=== PATIENT | male | born 1965 ===

== ENCOUNTER 2024-08-16 09:07 | Inpatient (IN) | payer OTHER, SELFPAY ==
[2024-08-13] VITALS (11 sets, daily range): BP systolic 132–208; BP diastolic 67–109; BMI 56.5
[2024-08-13 12:27] LABS: % Basophils 0.3 % (0-2); % Eosinophils 2.1 % (0-6); % Immature Granulocytes 0.7 % (0-0.5); % Lymphocytes 17.3 % (20.5-51.1); % Monocytes 8.2 % (1.7-9.3); % Neutrophils 71.4 % (42.2-75.2); Absolute Eosinophils 0.2 10^3/uL (0-0.7); Absolute Immature Granulocytes 0.1 10^3/uL (0-0.05); Absolute Lymphocytes 1.9 10^3/uL (1.2-3.4); Absolute Monocytes 0.9 10^3/uL (0.1-0.6); Absolute Neutrophils 7.7 10^3/uL (1.4-6.5); Hematocrit 34.3 % (39.0-52.0); Hemoglobin 11.2 g/dL (13.0-18.0); Mean Corp Hgb Conc. 32.7 g/dL (33.0-37.0); Mean Corpuscular Hgb 29.9 pg (27.0-31.0); Mean Corpuscular Volume 91.5 fL (80.0-94.0); Mean Platelet Volume 9.3 fL (7.4-10.4); Nucleated Red Blood Cells % 0 % (-); Platelet Count 313 10^3/uL (130-400); Red Blood Cell Count 3.75 10^6/uL (4.70-6.10); Red Cell Dist. Width 14.8 % (11.5-14.5); White Blood Cell Count 10.8 10^3/uL (4.8-10.8)
[2024-08-13] MEDS: LOW STRENGTH ASPIRIN 324 MG PO (12:45)
[2024-08-13 12:54] LABS: Blood Urea Nitrogen 47 mg/dl (9-20); Calcium 8.8 mg/dl (8.4-10.2); Carbon Dioxide 24 mmol/L (22-30); Chloride 105 mmol/L (98-107); Glucose 110 mg/dl (70-99); Potassium 5.3 mmol/L (3.5-5.1); Sodium 139 mmol/L (135-145); eGFR 7.85
--- NOTE | 2024-08-13 18:00 | HPS.HSE ---
Family Physician
-
Family Physician: INTERVIEWE UNKNOWN - PT NOT
Chief Complaint
-
cough
History of Present Illness
Patient is a 59-year-old male with past medical history significant for hypertension, hyperlipidemia, chronic congestive heart failure, anemia and ESRD on HD who presented to [facility] for scheduled out-patient cardiac catheterization. Patient was in
catheterization with elevated blood pressure and cough when physician decided patient needed to spend the night for potential decompensated heart failure. Patient reports that he has had a mild cough with exertion for a long period of time, he
reports he feels the past week has been slightly better than before. He attributes the cough to catheter placement for dialysis and when moved from chest wall to groin he has had improvement, he believes when in chest wall it was irriatating back of
throat causing cough. He denies any recent illness, fever, chills, chest pain, nausea, vomiting, constipation, diarrhea or urinary symptoms.
Medical History
Past Medical History
Past Medical History: Reports Other
Additional Past Medical History:
hypertension
hyperlipidemia
chronic congestive heart failure
anemia
ESRD on HD
Past Surgical History: Reports Other
Additional Past Surgical History:
gastric bypass
HD catheter placement x3
cardiac catherterization
Social History
Tobacco: Former Smoker (quit 15-20 years ago)
Alcohol: None
Drug: None
Personal: Single
Living: With Family
Employment: Retired
Family History
Family History: Not pertinent
Allergies / Home Medications
Allergies reflects when Allergies were last updated in Seen.
Home Medications with original date entered in Seen
Allergy/Medication List:
Allergies
Allergy/AdvReac Type Severity Reaction Status Date / Time
lisinopril Allergy Tongue Verified 08/13/24 12:27
Swelling
Home Medications
aspirin 81 mg tablet,delayed release 81 mg PO DAILY 08/13/24
atorvastatin 80 mg tablet 80 mg PO HS 08/13/24
bumetanide 2 mg tablet 2 mg PO HS 08/13/24
carvedilol 25 mg tablet 25 mg PO BID 08/13/24
hydralazine 25 mg tablet 25 mg PO BIDPRN PRN high BP 08/13/24
sacubitril 24 mg-valsartan 26 mg tablet (Entresto) 1 tab PO BID 08/13/24
sevelamer carbonate 800 mg tablet (Renvela) 800 - 1,600 mg PO TID 08/13/24
Review of Systems
-
History Source: Patient
Respiratory: Reports Cough (unproductive, moist ) and Trouble Breathing (exertional dyspnea)
Neurological: Reports Weakness
Physical Exam
Vital Signs
Vital Signs
Temp Pulse Resp BP Pulse Ox
97.9 F 91 18 188/109 99
08/13/24 17:50 08/13/24 17:50 08/13/24 17:50 08/13/24 17:50 08/13/24 17:50
Physical Exam
General: Well Developed, Well Nourished and No Apparent Distress
HEENT: NormoCephalic, Moist mucous membranes and Atraumatic
Respiratory: Clear, Non Labored Respirations and Decreased Breath Sounds
Cardiac: S1/S2 and Regular Rhythm
Breast: Deferred by me
GI: Soft, Non Tender, Non Distended and Normal Bowel Sounds
Rectal: Deferred by Provider
Genito-urinary: Deferred by me
Musculoskeletal: No Clubbing, No Cyanosis and No Edema
Skin: Warm and IV/Catheter Site (HD cath in right groin )
Neuro: Awake, Alert, AO x 3 and Nonfocal/grossly intact
Hematologic/Lymphatic: No Lymphadenopathy
Psych: Calm and Intact Judgment/Insight
Laboratory Results
-
08/13/24 12:19
08/13/24 12:19
Data Reviewed
-
Lab Data: Labs Reviewed by me (hgb 11.2, hct 34.3, K+ 5.3, BUN 47, Creat 7.4)
Impression/Plan
-
IMPRESSION/PLAN:
#exertional dyspnea, cough and elevated blood pressure likely 2/2 decompensated heart failure and non-compliance
#non-ischemic cardiomyopathy
patient known to be non-complaint with medications and POC
ECHO (05/07/23): Very technically limited study.
Probably normal left ventricular systolic function.
No obvious valvular disease.
- Admit to IVU
- Consult cardiology
- continue bumetanide, carvedilol and Entresto
- daily weights
- I & Os
#hypertension
- continue bumetanide, carvedilol and hydralazine
- PRN hydralazine
#hyperlipidemia
- continue atorvastatin
#anemia
hgb 11.2, hct 34.3
- monitor H/H
#ESRD
on HD, last session 08/12/2024,
K+ 5.3, BUN 47, Creat 7.4
- Consult Nephrology
- continue Renvela
#morbid obesity
BMI 56.4
- affects all aspects of care
- encourage balanced diet and exercise to promote weight loss
Code status: full code
DVT prophylaxis: heparin sq
[2024-08-13] MEDS: TYLENOL 650 MG PO (18:05)
[2024-08-13] MEDS: BUMEX 2 MG IV (18:05)
--- NOTE | 2024-08-13 18:27 | PTCARENOTE ---
Rec'd pt from laborer plumbing. R radial band on. No bleeding/hematoma noted. Activity restrictions reviewed w/ pt and verbalizes understanding. Oriented pt to room. Pt w/ HD catheter in R groin. Pt c/o headache 05/24 and tylenol administered. IV Bumex
administered as ordered. See MAR. Currently in bed; call nancy w/in reach.
--- NOTE | 2024-08-13 18:33 | PTCARENOTE ---
Rec'd pt from carpenter labor supervisor. R radial band on. No bleeding/hematoma noted. Activity restrictions reviewed w/ pt and verbalizes understanding. Oriented pt to room. Pt w/ HD catheter in R groin. Pt c/o headache 05/24 and tylenol administered. IV Bumex
administered as ordered. See MAR. Currently in bed; call nancy w/in reach. Aline INSURANCE ACCOUNT SPECIALIST at bedside.
--- NOTE | 2024-08-13 19:23 | W.PN.UPDATE ---
Update Note
Progress Note Update
This is an addendum to H&P written by Ange Mireles on 08/13/2024.� Patient seen and examined independently with CLOTH LAMINATING SUPERVISOR.
59-year-old male past medical history of ESRD on hemodialysis Friday, , Friday last dialysis session yesterday, makes some urine at baseline, nonischemic cardiomyopathy with recovered EF, hypertension, hyperlipidemia, anemia of chronic
disease, obesity, gastric sleeve presenting for preoperative left heart cardiac catheterization.� Patient follows with cardiology at [facility] and was recommended to have preoperative cardiac catheterization prior to AV fistula placement.
He has been noncompliant with medications.
He underwent left heart catheterization showung distal apical LAD occlusion without PCI to be treated medically.� He was noted to be coughing.
Vital signs show blood pressure 188/109.
Labs show potassium of 5.3.�
Patient with acute CHF exacerbation with hypertensive urgency due to medication noncompliance.� 2 mg IV Bumex being given, continue 2 mg daily.� Resume antihypertensive/cardiac medications.� Nephrology consulted for dialysis tomorrow.� Cardiology
following.
--- NOTE | 2024-08-13 19:33 | ITS.CL.CATH ---
Diplomatic Courier - Catheterization
Cardiac Catheterization
Procedure Report:
LEFT HEART CATHETERIZATION
Date of Procedure: August 13, 2024
Referring: Dr. Luigi Durham
PROCEDURES:
1. Left heart catheterization, coronary angiogram.
2. Moderate sedation.
INDICATION: Patient is a 59-year-old gentleman with past medical history of morbid obesity, hypertension, hyperlipidemia, end-stage renal disease on dialysis, previous questionable cardiomyopathy with recovered EF with ongoing dyspnea on exertion
being sent in for a left heart catheterization to rule out obstructive coronary artery disease preoperatively prior to a AV fistula placement next week.
ACCESS: Right radial artery, 6Fr. sheath, under US guidance.
HEMODYNAMICS : (mmHg)
AO (s/d) : 176/82
LVEDP : 27
No significant gradient across the aortic valve to suggest aortic stenosis.
CORONARY FINDINGS: Imaging was extremely challenging due to super morbid obesity.
Dominance: Right
Left Main Trunk (LMT): 2 separate ostia appeared to be present for the LAD and left circumflex.
Left Anterior Descending Artery (LAD): Large caliber vessel that gives off 2 major diagonal branches as it courses along the anterior inter-ventricular groove before wrapping around the cardiac apex. Distal to apical LAD has 100% chronic total
occlusion with left to left collaterals. Otherwise there is mild diffuse atherosclerotic plaque.
Left Circumflex Artery (LCx): The left circumflex artery is a medium caliber vessel which gives rise to 2 major obtuse marginal branches with mild to moderate diffuse atherosclerotic plaque.
Right Coronary Artery (RCA): The right coronary artery is a small to medium caliber, dominant vessel which gives rise to the right posterior descending artery. Despite using multiple different diagnostic catheters including a JR4, AL-1, AR-1 and a
3DRC only a nonselective shot could be obtained which showed brisk flow into the distal vessel with no obvious high-grade lesion.
SEDATION: 37 minutes of procedural sedation was utilized. IV Midazolam and IV Fentanyl were administered. An independent medical auditor was present to assist with and help manage the patient's level of consciousness and physiologic status.
RADIATION SUMMARY: Fluoro Time (min): 17, Dose (mGy): 2454, DAP (Gy.cm2) : 149
Closure Device: There were no immediate intra-procedural complications. The sheath was pulled in the laborer stores and a vascular-band applied to the right wrist for radial artery hemostasis using the patent hemostasis technique.
CONCLUSIONS
1. No high-grade stenoses noted.
2. Significantly elevated systemic blood pressures and LVEDP of 27 mmHg concerning for acute decompensated heart failure.
RECOMMENDATIONS
1. Wean radial band per protocol. Monitor right hand perfusion and for bleeding from the radial site following removal of the vascular-band following trans-radial access.
2. Aggressive IV diuresis during hospital admission for acute decompensated heart failure and optimization of medications for underlying hypertension. Aggressive ultrafiltration during hemodialysis
3. Aggressive management of cardiovascular risk factors.
4. Follow-up with Dr. Luigi Durham
Copy to: Dr. Luigi Durham
[2024-08-13] MEDS: COREG 25 MG PO (20:21)
[2024-08-13] MEDS: ENTRESTO 24 MG/26 MG 1 TAB PO (20:21)
[2024-08-13] MEDS: LIPITOR 80 MG PO (23:12)
[2024-08-13] MEDS: HEPARIN 5000 UNITS SC (23:12)
[2024-08-14] VITALS (32 sets, daily range): BP systolic 83–183; BP diastolic 62–119; BMI 56.9
--- NOTE | 2024-08-14 00:01 | PTCARENOTE ---
Pt rec'd at change of shift in bed falling asleep during adm questions with limbs in constant motion. Pt states hx of sleep apnea but after losing wt hasn't worn a machine in years. Right radial band removed just before 10pm. site clean dry and
intact. no active bleeding or hematoma present.
Right femoral dialysis cath noted,DDI. Sinus with freq pvc's and triplets noted on telemetry. Voided once since start of shift.
[2024-08-14 04:39] LABS: Hematocrit 35.6 % (39.0-52.0); Hemoglobin 11.1 g/dL (13.0-18.0); Mean Corp Hgb Conc. 31.2 g/dL (33.0-37.0); Mean Corpuscular Hgb 28.3 pg (27.0-31.0); Mean Corpuscular Volume 90.8 fL (80.0-94.0); Mean Platelet Volume 9.3 fL (7.4-10.4); Platelet Count 279 10^3/uL (130-400); Red Blood Cell Count 3.92 10^6/uL (4.70-6.10); Red Cell Dist. Width 14.6 % (11.5-14.5); White Blood Cell Count 10.7 10^3/uL (4.8-10.8)
--- NOTE | 2024-08-14 04:44 | PTCARENOTE ---
Pt with harsh non productive cough throughout the night. right radial site DDI. washed with chg wipes this morning
[2024-08-14 05:09] LABS: Blood Urea Nitrogen 53 mg/dl (9-20); Calcium 9.1 mg/dl (8.4-10.2); Carbon Dioxide 24 mmol/L (22-30); Chloride 105 mmol/L (98-107); Estimated Creatinine Clearance 15 ml/min; Glucose 110 mg/dl (70-99); HDL Cholesterol 30 mg/dl; LDL Cholesterol, Calculated 147 mg/dl; Potassium 5.9 mmol/L (3.5-5.1); Sodium 139 mmol/L (135-145); Total Cholesterol 230 mg/dl (50-199); Triglyceride 265 mg/dl (10-149); Very Low Density Lipoprotein 53 mg/dl (0-30); eGFR 6.94
--- NOTE | 2024-08-14 05:15 | PTCARENOTE ---
Pt with 14 beat run of VT. Pts b/p 161/83.
[2024-08-14] MEDS: ENTRESTO 24 MG/26 MG PO (09:00)
[2024-08-14] MEDS: COREG PO (09:00)
[2024-08-14] MEDS: LOW STRENGTH ASPIRIN 81 MG PO (09:52)
--- NOTE | 2024-08-14 10:13 | W.CON.NEPH ---
Consultation
-
Date/Time Consultation Requested: August 13, 2024 at 1700
Date/Time Consultation Performed: August 14, 2024 at 10 AM
Requesting Provider: Ange Mireles
Performing Provider: Dr. Mathews
Reason for Consultation: ESRD
Medical History
-
Chief Complaint: Shortness of breath and ESRD
History of Present Illness:
59-year-old male with past medical history significant for hypertension, hyperlipidemia, chronic congestive heart failure, anemia and ESRD on HD who presented to [facility] for scheduled out-patient cardiac catheterization. Patient was in catheterization
with elevated blood pressure and cough when physician decided patient needed to spend the night for potential decompensated heart failure.
Renal consult for end-stage renal disease been on dialysis for 2 years has failed AV shunts bilateral upper extremity currently has a tunneled right femoral catheter.
Receives dialysis at [facility] for Ferny Meade
Past Medical History
past medical history significant for hypertension, hyperlipidemia, chronic congestive heart failure, anemia and ESRD on HD
Social History
Tobacco: Non-Smoker
Alcohol: None
Family History
No renal disease
Allergies / Home Medications
Allergy/AdvReac Type Severity Reaction Status Date / Time
lisinopril Allergy Tongue Verified 08/13/24 12:27
Swelling
�Medication �Instructions �Recorded �Confirmed �Type
aspirin 81 mg tablet,delayed 81 mg PO DAILY 08/13/24 08/13/24 History
release
atorvastatin 80 mg tablet 80 mg PO HS 08/13/24 08/13/24 History
bumetanide 2 mg tablet 2 mg PO HS 08/13/24 08/13/24 History
carvedilol 25 mg tablet 25 mg PO BID 08/13/24 08/13/24 History
hydralazine 25 mg tablet 25 mg PO BIDPRN PRN high BP 08/13/24 08/13/24 History
sacubitril 24 mg-valsartan 26 mg 1 tab PO BID 08/13/24 08/13/24 History
tablet (Entresto)
sevelamer carbonate 800 mg tablet 800 - 1,600 mg PO TID 08/13/24 08/13/24 History
(Renvela)
Review of Systems
-
Cough mild shortness of breath on exertion
All other systems: Negative unless noted
Physical Exam
Vital Signs
Vital Signs
Temp Pulse Resp BP Pulse Ox
98.6 F 89 19 145/81 96
08/14/24 08:10 08/14/24 09:00 08/14/24 08:10 08/14/24 08:11 08/14/24 08:10
Lab Results
WBC 10.7 10^3/uL (4.8-10.8) 08/14/24 04:30
RBC 3.92 10^6/uL (4.70-6.10) L 08/14/24 04:30
Hgb 11.1 g/dL (13.0-18.0) L 08/14/24 04:30
Hct 35.6 % (39.0-52.0) L 08/14/24 04:30
Plt Count 279 10^3/uL (130-400) 08/14/24 04:30
Sodium 139 mmol/L (135-145) 08/14/24 04:30
Potassium 5.9 mmol/L (3.5-5.1) H 08/14/24 04:30
Chloride 105 mmol/L (98-107) 08/14/24 04:30
Carbon Dioxide 24 mmol/L (22-30) 08/14/24 04:30
BUN 53 mg/dl (9-20) H 08/14/24 04:30
Creatinine 8.2 mg/dL (0.7-1.3) H* 08/14/24 04:30
eGFR 6.94 08/14/24 04:30
Glucose 110 mg/dl (70-99) H 08/14/24 04:30
Calcium 9.1 mg/dl (8.4-10.2) 08/14/24 04:30
Physical Exam
General no acute distress
HEENT no cephalic atraumatic extraocular muscle intact no scleral icterus no JVD neck supple
lungs clear to auscultation bilateral
heart regular S1-S2 positive
abdomen soft nontender positive bowel sounds
extremities edema
Neurologically nonfocal alert and oriented x 3
Skin no lesions no abrasions no petechiae
Psych normal affect no bizarre behavior
Data Reviewed
-
Labs: Labs Reviewed by me and Discussed with Patient
Assessment/Plan
-
59-year-old male with past medical history significant for hypertension, hyperlipidemia, chronic congestive heart failure, anemia and ESRD on HD who presented to [facility] for scheduled out-patient cardiac catheterization. Patient was in catheterization
with elevated blood pressure and cough when physician decided patient needed to spend the night for potential decompensated heart failure.
Renal consult for end-stage renal disease been on dialysis for 2 years has failed AV shunts bilateral upper extremity currently has a tunneled right femoral catheter.
Receives dialysis at [facility] Dr. Meade
Impression.
End-stage renal disease Friday at [facility].
CHF.
Morbid obesity.
Right tunneled femoral dialysis catheter.
Failed AV shunts bilateral upper extremity.
Plan.
Dialysis today aggressive ultrafiltration based on cardiac catheterization high end-diastolic pressure.
Patient states estimated dry weight is 170 kg
Dialysis ordered for today
Will plan on 4 L ultrafiltration
See orders
--- NOTE | 2024-08-14 11:03 | W.PN.CARDCBS ---
Addendum entered and electronically signed by Olivia Monae MD 08/14/24 11:46:
I saw and examined the patient.
The Engine Designer's note was reviewed and I agree with the note.
Comment:
Denies chest pain but came in for procedure with shortness of breath and acute on chronic heart failure with preserved ejection fraction.
Exam today with volume overload. Distant heart sounds. Coarse breath sounds with crackles throughout. Patient coughing throughout exam. +1 edema.
Cardiac catheterization independently reviewed by me with apical LAD with 100% chronic total occlusion and left to left collaterals. No high-grade stenosis otherwise. LVEDP significantly elevated at 27.
End-stage renal disease on dialysis.
Plan at this time:
-IV Bumex given patient still urinates
-Ultrafiltration per nephrology
-Echocardiogram on Friday
-Follow labs
-Guideline directed medical therapy for heart failure with preserved ejection fraction as tolerates
-Treatment of hypertension await fluid removal first.
-Continue lipid-lowering given coronary disease
-EKG ordered
-Given continued cough will check chest x-ray
Labs, and telemetry independently reviewed by me.
Original Note:
Today's Communication / Plan
-
Still makes urine, increase Bumex to 2 mg IV BID
UF for 5.5 kg today is planned and BP is acceptable
Echo Friday
Impression / Plan
-
PCP: Dr. Ericka Campos
Card: Dr. Durham at [facility]
Impression:
Admitted for acute HFpEF following elective outpatient cardiac cath 08/13/2024
Acute on chronic HFpEF
Reported history of CM, unknown EF now reportedly improved and EF probably normal by echo at [facility] 05/07/2023
HTN
Hyperlipidemia
ESRD on HD
Scheduled for outpatient AV fistula creation 08/2024
Nonobstructive CAD by cardiac catheterization 08/13/2024
Echo 05/07/2023: [facility] study, very technically limited study, probably normal LV systolic function, poor visualization of valvular structures but no obvious significant valvular heart disease
Plan:
-Patient follows with Dr. Durham at [facility] and was referred to Dr. Downey for [facility] as a preoperative evaluation to planned AV fistula placement next week. During [facility] 08/13/2024 the patient had no obstructive disease, but the LVEDP was 27 and patient was
admitted for acute HF.
-Patient being weighed with bed scale due to body habitus and overall weight is up 3 lbs despite Bumex 2 mg IV x 1 08/14/2024 PM
-Patient was taking Bumex 2 mg PO HS prior to admission and that dose is currently ordered, but suspect the patient remains in acute HF and will increase to Bumex 2 mg IV BID, ordered by me
-Patient is on HD for ESRD and is set for UF for 5.5 kg on 08/14/2024, internet systems administrator thinks this is possible due to reasonable BP. He still makes urine
-Echo noted above was a TDS and is more than 1-year-old so recommend repeat echo on Friday, ordered by me
-Outpatient dose of Coreg 25 mg BID has been continued
-Outpatient dose of Entresto 24/26 mg BID has been continued
-Patient is not chronically on spironolactone due to ESRD on HD
-Would not start SGLT2 inhibitor due to ESRD on HD
Progress Note - Assistant Center Manager
Subjective
Date of Service: August 14, 2024
He is coughing and says this is chronic
Objective
Labs:
08/14/24 04:30
08/14/24 04:30
Labs
Hgb 11.1 g/dL (13.0-18.0) L 08/14/24 04:30
Hct 35.6 % (39.0-52.0) L 08/14/24 04:30
Plt Count 279 10^3/uL (130-400) 08/14/24 04:30
Sodium 139 mmol/L (135-145) 08/14/24 04:30
Potassium 5.9 mmol/L (3.5-5.1) H 08/14/24 04:30
BUN 53 mg/dl (9-20) H 08/14/24 04:30
Creatinine 8.2 mg/dL (0.7-1.3) H* 08/14/24 04:30
Glucose 110 mg/dl (70-99) H 08/14/24 04:30
Vital Signs and I&O:
Vital Signs
Temp Pulse Resp BP Pulse Ox
98.6 F 89 19 145/81 96
08/14/24 08:10 08/14/24 09:00 08/14/24 08:10 08/14/24 08:11 08/14/24 08:10
Vital Signs
Temp Pulse Resp BP Pulse Ox
98.6 F 89 19 145/81 96
08/14/24 08:10 08/14/24 09:00 08/14/24 08:10 08/14/24 08:11 08/14/24 08:10
Intake & Output
08/12/24 08/13/24 08/14/24 08/15/24
06:59 06:59 06:59 06:59
Intake Total 240 / 240
Output Total 850 / 850 550 / 550
Balance -610 / -610 -550 / -550
Physical Exam
Physical Exam
GEN: NAD. AAOx3
HEENT: EOMI
LUNGS: RA. +nonproductive cough
CV: SR on tele.
ABD: large pannus
EXT: +1 B/L LE edema
NEURO: Gross non-focal
SKIN: No rash
--- NOTE | 2024-08-14 11:05 | W.PN.HOSP.TC ---
Today's Communication/Plan
-
See PN
Assessment / Plan
Assessment / Plan
59yo M with PMHx of ESRD on HD, morbid obesity, HTN, HFrEF came for elective cardiac cath on 08/13/24, found non-obstructive coronary disease and elevated RH pressures, admitted for CHF exacerbation and fluid mgmt
A/P:
#Acute on chronic CHF with recovered EF
#Hyperkalemia 2/2 ESRD
#Non-obstrcutive CM
Bumex, daily hung, follow electrolytes (patient is producing urine)
HD volume mgmt
Dry weight around 170kg
Cardio consult
#Essential HTN
#ESRD on HD
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
#HLD
nephrology for HD
cont home meds
DVT ppx hep
FUll code
I have spent at least 59min reviewing chart, test results, communication with consultants and providing direct patient care
Anticipated Discharge: 24 - 48 hours
Subjective/Interval History
-
Date of Service: August 14, 2024
Objective Data
-
Labs:
Laboratory Results
08/14/24
04:30
WBC 10.7
Hgb 11.1 L
Hct 35.6 L
Plt Count 279
Sodium 139
Potassium 5.9 H
Chloride 105
Carbon Dioxide 24
BUN 53 H
Creatinine 8.2 H*
Glucose 110 H
Calcium 9.1
Vital Signs:
Vital Signs
Temp Pulse Resp BP Pulse Ox
98.6 F 89 19 145/81 96
08/14/24 08:10 08/14/24 09:00 08/14/24 08:10 08/14/24 08:11 08/14/24 08:10
I&O
08/13/24 08/14/24 08/15/24
06:59 06:59 06:59
Intake Total 240 / 240
Output Total 850 / 850 550 / 550
Balance -610 / -610 -550 / -550
Review of Systems
-
History Source: Patient
All other systems: Reviewed and negative
Physical Exam
-
General: Comfortable and Obese
HEENT: Moist Mucous Membranes
Cardiac: Regular Rhythm
GI: Soft, Nontender and Nondistended
Musculoskeletal: No Clubbing, No Cyanosis, Edema, Right Lower Extrem and Edema, Left Lower Extrem
Neuro: Awake, Alert, Oriented, AO x 3 and No Motor Deficits
Psych: Calm
[2024-08-14] MEDS: HEPARIN 5000 UNITS SC ×3 (11:15→23:14)
[2024-08-14] MEDS: HEPARIN 1000 UNITS IV (11:56)
--- NOTE | 2024-08-14 12:34 | W.PN.NEPH.HD ---
Assessment
-
UF goal 4-5 L
Progress Note - Hemodialysis
-
Date of Service: August 14, 2024
Duration: 45 minutes and 3 hours
Potassium Bath: 2
Calcium Bath: 2.5
Opti-Dialyzer: 160
Ultrafiltration: EDW
Blood Flow: 400
Dialysate Flow: 600
Heparin: 1000 bolus/ 500 mid
EPO: no
[2024-08-14] MEDS: HEPARIN 500 UNITS IV (12:56)
[2024-08-14] MEDS: MANNITOL 25% 12.5 GRAMS IV (13:17)
[2024-08-14] MEDS: BUMEX 1 MG IV (17:26)
[2024-08-14] MEDS: COREG 25 MG PO (20:06)
[2024-08-14] MEDS: ENTRESTO 24 MG/26 MG 1 TAB PO (20:07)
--- NOTE | 2024-08-14 21:18 | PTCARENOTE ---
Assumed care on pt at change of shift, aaox3, denies pain, SOB or discomfort, SR with PVC's on the monitor, HR 80-100's. BP 170/100's at start of shift, AM BP meds were held this morning d/t HD, ernesto Entresto and coreg given, with recheck VSS. Pt c/o
harsh shank faker cough, motor and controls tester MARKING STITCHER made aware, PRN tussin ordered and administered. Call cruz within reach, POC ongoing.
[2024-08-14] MEDS: ROBITUSSIN 200 MG PO (21:28)
[2024-08-14] MEDS: LIPITOR 80 MG PO (21:28)
[2024-08-15 04:03] VITALS: BMI 56.0
[2024-08-15 05:34] LABS: Blood Urea Nitrogen 40 mg/dl (9-20); Calcium 9.1 mg/dl (8.4-10.2); Carbon Dioxide 26 mmol/L (22-30); Chloride 101 mmol/L (98-107); Estimated Creatinine Clearance 17 ml/min; Glucose 115 mg/dl (70-99); Potassium 5.1 mmol/L (3.5-5.1); Sodium 136 mmol/L (135-145); eGFR 8.11
[2024-08-15 07:58] VITALS: BP 137/84
[2024-08-15] MEDS: BUMEX 1 MG IV ×2 (07:59→15:55)
[2024-08-15] MEDS: COREG 25 MG PO ×2 (07:59→20:37)
[2024-08-15] MEDS: LOW STRENGTH ASPIRIN 81 MG PO (07:59)
[2024-08-15] MEDS: HEPARIN 5000 UNITS SC ×2 (08:00→15:55)
[2024-08-15] MEDS: ENTRESTO 24 MG/26 MG 1 TAB PO ×2 (08:00→20:37)
--- NOTE | 2024-08-15 08:00 | PTCARENOTE ---
received report from retail shift leader Rn. pt aaox3 in hospital bed on cardiac exercise specialist. VSS, PIV present in left FA area. no pressing issues at the moment. pending echo and assessment by MDs. plan of care continues to be followed.
[2024-08-15 11:29] VITALS: BP 135/88
--- NOTE | 2024-08-15 11:55 | W.PN.CARDCBS ---
Today's Communication / Plan
-
Continue volume removal per nephrology
Blood pressure is improving with volume removal. Continue current treatment.
Continue risk factor modification for coronary disease which is medically managed
Echo Friday
Impression / Plan
-
PCP: Dr. Ericka Campos
Card: Dr. Durham at [facility]
Impression:
Admitted for acute HFpEF following elective outpatient cardiac cath 08/13/2024
Acute on chronic HFpEF
Reported history of CM, unknown EF now reportedly improved and EF probably normal by echo at [facility] 05/07/2023
HTN
Hyperlipidemia
ESRD on HD
Scheduled for outpatient AV fistula creation 08/2024
Nonobstructive CAD by cardiac catheterization 08/13/2024
Echo 05/07/2023: [facility] study, very technically limited study, probably normal LV systolic function, poor visualization of valvular structures but no obvious significant valvular heart disease
Plan:
Acute on chronic heart failure with preserved ejection fraction and chronic medically managed coronary disease
-Patient follows with Dr. Durham at [facility] and was referred to Dr. Downey for [facility] as a preoperative evaluation to planned AV fistula placement next week. During LHC 08/13/2024 the patient had no obstructive disease, but the LVEDP was 27 and patient was
admitted for acute HF. Of note apical LAD has 100% chronic total occlusion with left to left collaterals. Continue medical management.
-Patient still does urinate but primarily being ultrafiltrated as a method of volume removal. Bumex also being given intravenously. He is 6 pounds down with suppose a dry weight of 170 kg. Defer to nephrology for further ultrafiltration/dialysis.
-Patient is on HD for ESRD
-Echo noted above was a TDS and is more than 1-year-old. Echo Friday.
Hypertension noted but improving with volume removal.
-Outpatient dose of Coreg 25 mg BID has been continued
-Outpatient dose of Entresto 24/26 mg BID has been continued
-Patient is not chronically on spironolactone due to ESRD on HD
-Would not start SGLT2 inhibitor due to ESRD on HD
Hyperlipidemia
- Up titration of statin.
- Reassess as outpatient
Morbid obesity and possible sleep apnea
- Evaluated as outpatient
Progress Note - Councilman
Subjective
Date of Service: August 15, 2024
Really will not wake up for me today. Does tell me he has no chest pain. He feels tired.
Objective
Labs:
08/14/24 04:30
08/15/24 03:57
Labs
Hgb 11.1 g/dL (13.0-18.0) L 08/14/24 04:30
Hct 35.6 % (39.0-52.0) L 08/14/24 04:30
Plt Count 279 10^3/uL (130-400) 08/14/24 04:30
Sodium 136 mmol/L (135-145) 08/15/24 03:57
Potassium 5.1 mmol/L (3.5-5.1) 08/15/24 03:57
BUN 40 mg/dl (9-20) H 08/15/24 03:57
Creatinine 7.2 mg/dL (0.7-1.3) H* 08/15/24 03:57
Glucose 115 mg/dl (70-99) H 08/15/24 03:57
Vital Signs and I&O:
Vital Signs
Temp Pulse Resp BP Pulse Ox
97.6 F 77 17 135/88 98
08/15/24 11:28 08/15/24 11:29 08/15/24 11:28 08/15/24 11:29 08/15/24 11:28
Vital Signs
Temp Pulse Resp BP Pulse Ox
97.6 F 77 17 135/88 98
08/15/24 11:28 08/15/24 11:29 08/15/24 11:28 08/15/24 11:29 08/15/24 11:28
Intake & Output
08/13/24 08/14/24 08/15/24 08/16/24
06:59 06:59 06:59 06:59
Intake Total 240 / 240 240 / 240 120 / 120
Output Total 850 / 850 550 / 550 300 / 300
Balance -610 / -610 -310 / -310 -180 / -180
Physical Exam
Physical Exam
General: Well developed, well nourished in NAD.
Heart: Distant heart sounds RRR, no obvious murmurs, No S3, S4, no rubs.
Lungs: Coarse breath sounds with few crackles
Extremities: No clubbing, cyanosis or traceedema bilaterally.
--- NOTE | 2024-08-15 12:34 | W.PN.HOSP.TC ---
Today's Communication/Plan
-
cont diuresis, Echo in Am and plan for HD - patient was getting Mondays usually as addition to his TTS - nephrology contacted about that
Assessment / Plan
Assessment / Plan
59yo M with PMHx of ESRD on HD, morbid obesity, HTN, HFrEF came for elective cardiac cath on 08/13/24, found non-obstructive coronary disease and elevated RH pressures, admitted for CHF exacerbation and fluid mgmt
A/P:
#Acute on chronic CHF with recovered EF
#Hyperkalemia 2/2 ESRD
#Non-obstrcutive CM
Bumex, daily hung, follow electrolytes (patient is producing urine)
HD volume mgmt
Dry weight around 170kg
Cardio consult: significantly elevated pressures on cath - high risk for overt CHF - diuresis, Echo and HD
#Essential HTN
#ESRD on HD
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
#HLD
nephrology for HD
cont home meds
DVT ppx hep
FUll code
I have spent at least 39min reviewing chart, test results, communication with consultants and providing direct patient care
Anticipated Discharge: > 48 hours
Subjective/Interval History
-
Date of Service: August 15, 2024
Objective Data
-
Labs:
Laboratory Results
08/15/24
03:57
Sodium 136
Potassium 5.1
Chloride 101
Carbon Dioxide 26
BUN 40 H
Creatinine 7.2 H*
Glucose 115 H
Calcium 9.1
Vital Signs:
Vital Signs
Temp Pulse Resp BP Pulse Ox
97.6 F 77 17 135/88 98
08/15/24 11:28 08/15/24 11:29 08/15/24 11:28 08/15/24 11:29 08/15/24 11:28
I&O
08/14/24 08/15/24 08/16/24
06:59 06:59 06:59
Intake Total 240 / 240 240 / 240 120 / 120
Output Total 850 / 850 550 / 550 300 / 300
Balance -610 / -610 -310 / -310 -180 / -180
Physical Exam
-
General: No Apparent Distress
Respiratory: Clear to Auscultation
GI: Soft, Nontender and Nondistended
Neuro: Awake, Alert, Oriented and AO x 3
Psych: Calm
--- NOTE | 2024-08-15 14:51 | W.PN.NEPH.PH ---
Today's Communication / Plan
-
Dialysis tomorrow
Assessment/Plan
-
59-year-old male with past medical history significant for hypertension, hyperlipidemia, chronic congestive heart failure, anemia and ESRD on HD who presented to [facility] for scheduled out-patient cardiac catheterization. Patient was in catheterization
with elevated blood pressure and cough when physician decided patient needed to spend the night for potential decompensated heart failure.
Renal consult for end-stage renal disease been on dialysis for 2 years has failed AV shunts bilateral upper extremity currently has a tunneled right femoral catheter.
Receives dialysis at [facility] Dr. Meade
Impression.
End-stage renal disease Friday and Friday at [facility].
CHF.
Morbid obesity.
Right tunneled femoral dialysis catheter.
Failed AV shunts bilateral upper extremity.
Plan.
Aggressive ultrafiltration based on cardiac catheterization high end-diastolic pressure.
Patient states estimated dry weight is 170 kg.. Will need EDW adjusted outpatient as discussed with the patient
Dialysis ordered for Friday
See orders
-
-
Date of Service: August 15, 2024
CC / HPI / ROS
-
Chief Complaint:
CHF
History of Present Illness:
ESRD TTS and Friday
Review of Systems:
No chest pain or shortness of breath
Labs
-
Labs:
WBC 10.7 10^3/uL (4.8-10.8) 08/14/24 04:30
RBC 3.92 10^6/uL (4.70-6.10) L 08/14/24 04:30
Hgb 11.1 g/dL (13.0-18.0) L 08/14/24 04:30
Hct 35.6 % (39.0-52.0) L 08/14/24 04:30
Plt Count 279 10^3/uL (130-400) 08/14/24 04:30
Sodium 136 mmol/L (135-145) 08/15/24 03:57
Potassium 5.1 mmol/L (3.5-5.1) 08/15/24 03:57
Chloride 101 mmol/L (98-107) 08/15/24 03:57
Carbon Dioxide 26 mmol/L (22-30) 08/15/24 03:57
BUN 40 mg/dl (9-20) H 08/15/24 03:57
Creatinine 7.2 mg/dL (0.7-1.3) H* 08/15/24 03:57
eGFR 8.11 08/15/24 03:57
Glucose 115 mg/dl (70-99) H 08/15/24 03:57
Calcium 9.1 mg/dl (8.4-10.2) 08/15/24 03:57
Physical Exam
-
Vital Signs:
Vital Signs
Temp Pulse Resp BP Pulse Ox
97.6 F 80 17 135/88 98
08/15/24 11:28 08/15/24 14:00 08/15/24 11:28 08/15/24 11:29 08/15/24 11:28
Respiratory:: Bilateral: Coarse
Lung Excursion:: Normal
Abdomen:: Soft
Bowel Sounds:: Normal
Extremity Edema:: +1: Bilateral:
[2024-08-15 15:15] VITALS: BP 122/94
[2024-08-15 18:17] VITALS: BP 112/57
[2024-08-15 20:37] VITALS: BP 125/69
[2024-08-15] MEDS: LIPITOR 80 MG PO (20:37)
[2024-08-15] MEDS: ROBITUSSIN 200 MG PO (20:48)
[2024-08-15] MEDS: ANESTHETIC LOZENGE 1 LOZENGE PO (21:07)
--- NOTE | 2024-08-15 21:19 | PTCARENOTE ---
received patient at the change of shift. AAOx3. denies any pain. patients only complaint is a harsh, 'annoying', cough. PRN Robitussin given, see mar. patient requested a throat lozenge- notified Berenice BUILDING ECONOMIST- ordered and given, see mar. SR on tele with
a BBB-60s-80s. bp stable. R radial site- CDI, dressing removed. + pulses/trace edema. denies sob. urinating yellow urine in the urinal. reviewed plan of care with patient and verbalized understanding. dialysis at 0700 tomorrow. call cruz within
reach. makes needs known.
[2024-08-15 22:27] VITALS: BP 112/64
[2024-08-16] VITALS (11 sets, daily range): BP systolic 93–151; BP diastolic 62–116; BMI 56.0
[2024-08-16] MEDS: HEPARIN SC ×4 (00:40→17:25)
[2024-08-16] MEDS: ANESTHETIC LOZENGE 1 LOZENGE PO ×7 (00:53→20:57)
[2024-08-16] MEDS: HEPARIN 1000 UNITS IV (07:35)
--- NOTE | 2024-08-16 08:10 | PTCARENOTE ---
pt pain free on HD now. complains of cough. lozenge given as ordered.
[2024-08-16] MEDS: HEPARIN 500 UNITS IV (08:35)
--- NOTE | 2024-08-16 08:58 | W.PN.CARDCBS ---
Today's Communication / Plan
-
Continue ultrafiltration/hemodialysis for volume removal
Continue risk factor modification for coronary artery disease. Collateralized distal LAD noted. No angina.
Impression / Plan
-
PCP: Dr. Ericka Campos
Card: Dr. Durham at [facility]
Impression:
Admitted for acute HFpEF following elective outpatient cardiac cath 08/13/2024
Acute on chronic HFpEF
Reported history of CM, unknown EF now reportedly improved and EF probably normal by echo at [facility] 05/07/2023
HTN
Hyperlipidemia
ESRD on HD
Scheduled for outpatient AV fistula creation 08/2024
Nonobstructive CAD by cardiac catheterization 08/13/2024
Echo 05/07/2023: [facility] study, very technically limited study, probably normal LV systolic function, poor visualization of valvular structures but no obvious significant valvular heart disease
Plan:
Acute on chronic heart failure with preserved ejection fraction and chronic medically managed coronary disease
-Patient follows with Dr. Durham at [facility] and was referred to Dr. Downey for [facility] as a preoperative evaluation to planned AV fistula placement next week. During LHC 08/13/2024 the patient had no obstructive disease, but the LVEDP was 27 and patient was
admitted for acute HF. Of note apical LAD has 100% chronic total occlusion with left to left collaterals. Continue medical management.
-Patient still does urinate but primarily being ultrafiltrated as a method of volume removal. Bumex also being given intravenously. He is 7 pounds down with suppose a dry weight of 170 kg. Defer to nephrology for further ultrafiltration/dialysis.
He currently is undergoing going to dialysis/ultrafiltration this morning. Hopefully he is getting closer to dry weight.
-Patient is on HD for ESRD
-Echo noted above was a TDS and is more than 1-year-old. Echo today await.
Hypertension improved with volume removal.
-Outpatient dose of Coreg 25 mg BID has been continued
-Outpatient dose of Entresto 24/26 mg BID has been continued
-Patient is not chronically on spironolactone due to ESRD on HD
-Would not start SGLT2 inhibitor due to ESRD on HD
Hyperlipidemia
- Up titration of statin this admission.
- Reassess lipids as outpatient
Morbid obesity and possible sleep apnea
- Evaluated as outpatient
Progress Note - Bookkeeper Receptionist
Subjective
Date of Service: August 16, 2024
He is laying in the bed with no obvious shortness of breath. He denies chest pain. He felt a little bit better walking around the room he tells me.
Objective
Labs:
08/14/24 04:30
Labs
Hgb 11.1 g/dL (13.0-18.0) L 08/14/24 04:30
Hct 35.6 % (39.0-52.0) L 08/14/24 04:30
Plt Count 279 10^3/uL (130-400) 08/14/24 04:30
Sodium Cancelled 08/16/24 07:19
Potassium Cancelled 08/16/24 07:19
BUN Cancelled 08/16/24 07:19
Creatinine Cancelled 08/16/24 07:19
Glucose Cancelled 08/16/24 07:19
Vital Signs and I&O:
Vital Signs
Temp Pulse Resp BP Pulse Ox
98.2 F 82 20 127/70 94
08/16/24 06:52 08/16/24 04:18 08/16/24 06:52 08/16/24 04:18 08/16/24 06:52
Vital Signs
Temp Pulse Resp BP Pulse Ox
98.2 F 82 20 127/70 94
08/16/24 06:52 08/16/24 04:18 08/16/24 06:52 08/16/24 04:18 08/16/24 06:52
Intake & Output
08/14/24 08/15/24 08/16/24 08/17/24
06:59 06:59 06:59 06:59
Intake Total 240 / 240 240 / 240 870 / 870
Output Total 850 / 850 550 / 550 1000 / 1000
Balance -610 / -610 -310 / -310 -130 / -130
Physical Exam
Physical Exam
General: Well developed, well nourished in NAD.
Heart: Non displaced PMI, RRR, no murmurs, No S3, S4, no rubs.
Lungs: Coarse breath sounds
Extremities: No clubbing, cyanosis and trace edema bilaterally.
[2024-08-16] MEDS: MANNITOL 25% 12.5 GRAMS IV (09:40)
[2024-08-16 09:50] LABS: Blood Urea Nitrogen 41 mg/dl (9-20); Calcium 8.8 mg/dl (8.4-10.2); Carbon Dioxide 24 mmol/L (22-30); Chloride 100 mmol/L (98-107); Estimated Creatinine Clearance 22 ml/min; Glucose 175 mg/dl (70-99); Potassium 4.6 mmol/L (3.5-5.1); Sodium 135 mmol/L (135-145); eGFR 10.52
[2024-08-16] MEDS: BUMEX 1 MG IV ×2 (11:57→17:34)
[2024-08-16] MEDS: LOW STRENGTH ASPIRIN 81 MG PO (11:59)
[2024-08-16] MEDS: ENTRESTO 24 MG/26 MG PO ×2 (11:59→13:12)
[2024-08-16] MEDS: COREG PO ×2 (11:59→13:12)
--- NOTE | 2024-08-16 11:59 | W.PN.HOSP.TC ---
Today's Communication/Plan
-
Discharge panning
Assessment / Plan
Assessment / Plan
Physical exam:
General: Well Developed, Well Nourished and No Apparent Distress
HEENT: Normocephalic, Atraumatic and Moist Mucous Membranes
Respiratory: Clear to Auscultation except for some few crackles in bases; Negative Wheezes or Rhonchi
Cardiac: Regular Rhythm and S1/S2
GI: Soft, Nontender and Nondistended
Musculoskeletal: No Clubbing, No Cyanosis. + Trace B/L LE Edema
Neuro: Awake, Alert and Oriented, NO neuro-deficits
Psych: Calm
A/P:
Acute on chronic HFpEF:
On Bumex
HD per dialysis
Echo done today
Cardiac cath non obstructive cad on 08/13 this year
On B-gerri and Entresto
Discussed with cardiology today and cleared for d/c today
ESRD on HD:
HD per nephrology
Discussed with nephrology today and cleared for d/c today
HTN:
Cont anti-htn meds
HLD:
Cont home statins
Hyperkalemia:
Resolved
Anemia:
Hb >11 couple days ago
DVT Prophylaxis:
Heparin SQ
Code Status:
Full code
Anticipated Discharge: Today
Subjective/Interval History
-
Date of Service: August 16, 2024
Patient denies any cp or sob at the time of my eval. Afebrile. He says 'he needs to be home tonight'
Objective Data
-
Labs:
Laboratory Results
08/16/24 08/16/24
07:19 08:53
Sodium Cancelled 135
Potassium Cancelled 4.6
Chloride Cancelled 100
Carbon Dioxide Cancelled 24
BUN Cancelled 41 H
Creatinine Cancelled 5.8 H*
Glucose Cancelled 175 H
Calcium Cancelled 8.8
Vital Signs:
Vital Signs
Temp Pulse Resp BP Pulse Ox
97.8 F 70 20 93/63 96
08/16/24 11:12 08/16/24 11:12 08/16/24 06:52 08/16/24 11:12 08/16/24 11:12
I&O
08/15/24 08/16/24 08/17/24
06:59 06:59 06:59
Intake Total 240 / 240 870 / 870
Output Total 550 / 550 1000 / 1000
Balance -310 / -310 -130 / -130
[2024-08-16] MEDS: TYLENOL 650 MG PO (12:05)
--- NOTE | 2024-08-16 12:43 | W.PN.NEPH.HD ---
Assessment
-
pt seen during HD
vitals stable
low BPs with UF, goal lowered, pt has similar issues at home unit too
high dose heparin for clotting on machine -chronically
femoral catheter fair functioning
HD tomorrow-normally gets HD 4xweekly (Friday, )
schedule to have AVF creation this month
d/c plan per primary
Progress Note - Hemodialysis
-
Date of Service: August 16, 2024
Duration: 4 hours
Potassium Bath: 2
Calcium Bath: 2.5
Opti-Dialyzer: 160
Ultrafiltration: Other (2-2.5)
Blood Flow: 350
Dialysate Flow: 600
Heparin: yes-high dose with known h/o clotting on machine-bolus 8000, 2000 units hrl
EPO: no
--- NOTE | 2024-08-16 13:12 | PTCARENOTE ---
pt refusing bp meds this morning stating post HD his bp will drop on its own. and to low if overmedicated.
--- NOTE | 2024-08-16 14:35 | CARDSERVLU ---
Echocardiogram with Lumason completed after protocol screening completed. Allergies verified.
Patent IV site: _L hand___
IV site flushed with 0.9% NaCl pre and post administration.
Diluted bolus method utilized to enhance visualization of ventricular gilbert.
Total volume given: __2.5__ mL
Patient tolerated all procedures well without complications.
--- NOTE | 2024-08-16 15:07 | CM ---
Reviewed chart. Met with Mr. Bunch to review discharge plans. He states prior to admission he resides with his daughter and her children in a three story home with six steps to enter. He states he has a full flight of steps to go down to get
to his bedroom. He has to go upstairs for the full bathroom. He states prior to admission he has limited mobility. He states he has a shuffling gait and take his time. He states he does to outpatient dialysis at [facility] in the [place]. He
states he goes four times a week. Friday he goes in the afternoon and other other days he goes at 11:45 a[address] He states he drives himself. He states his daughter is his caregiver. He states he has a prescription plan and uses [facility].
Medical work-up in progress. The discharge plan is to return home with his daughters family when medically stable.
--- NOTE | 2024-08-16 16:08 | W.PN.UPDATE ---
Update Note
Progress Note Update
Informed by RN that pt c/o abd pain, and was trying to have a BM, he then felt dizzy while straining.
Suspect vasovagal episode.
Pt seen and examined at bedside, AOx3, abd soft, non-tender with normal bowel sound.
He informed that abd pain already much better.
Check Abd XR (suspect severe constipation), will order Dulcolax x1.
Cancel discharge.
[2024-08-16] MEDS: DULCOLAX 10 MG RECTAL (16:19)
--- NOTE | 2024-08-16 16:21 | PTCARENOTE ---
pt found in bathroom complaining he was having rectal and abd pain with dizziness when he pushed. no BM. pt placed back to bed. moaning in pain. dr Gaston and cross coverage dr Fernandez notified. dr Graham up to see pt. ordered suppository and abd
xray. canceled discharge
[2024-08-16] MEDS: RENVELA 800 MG PO (17:34)
--- NOTE | 2024-08-16 18:24 | PTCARENOTE ---
pt had large formed BM states abd pain/cramping feels better.
[2024-08-16] MEDS: ENTRESTO 24 MG/26 MG 1 TAB PO (20:57)
[2024-08-16] MEDS: LIPITOR 80 MG PO (20:57)
[2024-08-16] MEDS: COREG 25 MG PO (20:57)
[2024-08-17] MEDS: HEPARIN SC ×2 (00:07→07:48)
--- NOTE | 2024-08-17 00:11 | PTCARENOTE ---
patient continues with a harsh, frequent cough. multiple loose BMs each time patient coughs. needs assistance. ambulated to the bathroom. no lightheadedness/dizziness. partial bath completed. SR on tele with a BBB. bp stable. patient refused cardiac
medications because he was concerned about lowering his bp. educated patient on importance. reviewed bp trends with patient and verbalized understanding-medications given, see mar.
[2024-08-17 02:21] VITALS: BP 139/127
[2024-08-17 02:27] VITALS: BP 89/51
[2024-08-17 02:39] LABS: Hematocrit 38.5 % (39.0-52.0); Hemoglobin 12.6 g/dL (13.0-18.0); Mean Corp Hgb Conc. 32.7 g/dL (33.0-37.0); Mean Corpuscular Hgb 29.6 pg (27.0-31.0); Mean Corpuscular Volume 90.4 fL (80.0-94.0); Mean Platelet Volume 9.6 fL (7.4-10.4); Platelet Count 313 10^3/uL (130-400); Red Blood Cell Count 4.26 10^6/uL (4.70-6.10); Red Cell Dist. Width 14.6 % (11.5-14.5); White Blood Cell Count 15.3 10^3/uL (4.8-10.8)
[2024-08-17 03:09] LABS: Blood Urea Nitrogen 49 mg/dl (9-20); Calcium 9.1 mg/dl (8.4-10.2); Carbon Dioxide 21 mmol/L (22-30); Chloride 100 mmol/L (98-107); Estimated Creatinine Clearance 17 ml/min; Glucose 109 mg/dl (70-99); Potassium 5.2 mmol/L (3.5-5.1); Sodium 135 mmol/L (135-145); eGFR 7.85
[2024-08-17 03:17] VITALS: BMI 55.7
[2024-08-17] MEDS: RENVELA 800 MG PO (07:47)
[2024-08-17] MEDS: BUMEX 1 MG IV (07:47)
[2024-08-17] MEDS: LOW STRENGTH ASPIRIN 81 MG PO (07:47)
[2024-08-17] MEDS: ANESTHETIC LOZENGE 1 LOZENGE PO ×2 (07:47→11:53)
[2024-08-17] MEDS: ENTRESTO 24 MG/26 MG 1 TAB PO (07:47)
[2024-08-17 07:48] VITALS: BP 105/66
--- NOTE | 2024-08-17 09:03 | W.PN.HOSP.TC ---
Today's Communication/Plan
-
Discharge planning today
Assessment / Plan
Assessment / Plan
Physical exam:
General: Well Developed, Well Nourished and No Apparent Distress
HEENT: Normocephalic, Atraumatic and Moist Mucous Membranes
Respiratory: Clear to Auscultation except for some few crackles in bases; Negative Wheezes or Rhonchi
Cardiac: Regular Rhythm and S1/S2
GI: Soft, Nontender and Nondistended
Musculoskeletal: No Clubbing, No Cyanosis. + Trace B/L LE Edema
Neuro: Awake, Alert and Oriented, NO neuro-deficits
Psych: Calm
A/P:
Acute on chronic HFpEF:
On Bumex
HD per dialysis
Echo done and reviewed results
Cardiac cath non obstructive cad on 08/13 this year
On B-gerri and Entresto
Discussed with cardiology yesterday and cleared for d/c yesterday
Vasovagal event with constipation yesterday:
Cross-cover physician evaluated patient and cancelled discharge
Bowel regimen started today
ESRD on HD:
HD per nephrology
Discussed with nephrology yesterday and cleared for d/c yesterday
Since he was here in the hospital there were plans for repeat hemodialysis today but patient refused. Nephrology discussed with to arrange as outpatient. He's still stable for discharge today.
HTN:
Cont anti-htn meds
HLD:
Cont home statins
Hyperkalemia:
Resolved
Anemia:
Hb >11 couple days ago
DVT Prophylaxis:
Heparin SQ
Code Status:
Full code
Anticipated Discharge: Today
Subjective/Interval History
-
Date of Service: August 17, 2024
No new complaints. He wants to go home today.
Objective Data
-
Labs:
Laboratory Results
08/17/24
02:20
WBC 15.3 H
Hgb 12.6 L
Hct 38.5 L
Plt Count 313
Sodium 135
Potassium 5.2 H
Chloride 100
Carbon Dioxide 21 L
BUN 49 H
Creatinine 7.4 H*
Glucose 109 H
Calcium 9.1
Vital Signs:
Vital Signs
Temp Pulse Resp BP Pulse Ox
98.3 F 75 16 105/66 96
08/17/24 07:02 08/17/24 08:00 08/17/24 07:02 08/17/24 07:48 08/17/24 07:02
I&O
08/16/24 08/17/24 08/18/24
06:59 06:59 06:59
Intake Total 870 / 870 480 / 480 240 / 240
Output Total 1000 / 1000 400 / 400 300 / 300
Balance -130 / -130 80 / 80 -60 / -60
[2024-08-17 09:44] VITALS: BP 123/107
[2024-08-17] MEDS: COREG PO (10:26)
[2024-08-17 10:32] VITALS: BP 131/96
--- NOTE | 2024-08-17 11:00 | W.DCSUMMARY ---
Discharge Summary
Discharge Data
Date of Admission: 08/16/24
Date of Discharge: 08/17/24
Total time spent discharging patient (in min): 35
-
Pending Results: No
Hospital Course
Patient 59 years old male with history of hypertension, hyperlipidemia, CHF, anemia, end-stage renal disease on hemodialysis presented to the hospital for elective cardiac catheterization and had increased shortness of breath and found to be in
heart failure. Patient was started on IV diuresis. Cardiology consulted. Nephrology also consult and he was treated with ultrafiltration with hemodialysis per nephrology guideline directed medical therapy for heart failure with preserved ejection
fraction as tolerated and guided by cardiology. Follow-up echocardiogram showed EF of 30 to 35%. During his cardiac catheterization no obstructive new coronary disease was identified. Cardiology recommended to continue Coreg, Entresto and Bumex
as outpatient no SGLT2 inhibitors or spironolactone due to dialysis for now. Patient was going to have another session of dialysis today but he declined and wants to pursue that as outpatient. His volume status is acceptable and nephrology is okay
with that. Cardiology and nephrology have cleared him for discharge. Patient will be discharged in stable condition today.
Discharge duration: 35 minutes
Discharge Plan
-
Patient Disposition: Home (Routine Discharge)
Discharge Diagnosis/Procedures: Acute on chronic diastolic congestive heart failure. End-stage renal disease on hemodialysis. Hypertension. Hyperlipidemia. History of coronary artery disease.
Diet: Low Cholesterol, 2 Gram Sodium and Restrict fluids to 48 oz
Driving Restrictions: No driving for 24 hours
Blood Work: Please PCP to order CBC, BMP within 1 week
Specialty Instructions: Weigh Daily- Call MD for wt gain/loss 3 lbs overnight/5 lbs in 1 week
Instructions: Constipation in adults, Heart failure, How to care for a hemodialysis catheter
Stand Alone Forms: DC Instructions- Cath/EP Lab
Referrals:
Ericka Campos DO [Non-Admitting Privileges, Family Practice] - in less than 1 week
Luigi Durham MD [Active, Internal Medicine] - in less than 1 week
Olivia Monae MD [Active, Cardiology] - in two to three weeks
Rosemary Schmitz MD [Active, Nephrology] - in one to two weeks
Prescriptions:
Continued
atorvastatin 80 mg Tablet
80 mg PO HS
carvedilol 25 mg Tablet
25 mg PO BID
bumetanide 2 mg Tablet
2 mg PO HS
hydralazine 25 mg Tablet
25 mg PO BIDPRN PRN (Reason: high BP)
sevelamer carbonate [Renvela] 800 mg Tablet
800 - 1,600 mg PO TID
Entresto 24-26 mg Tablet
1 tab PO BID
aspirin 81 mg Tablet,Delayed Release (Dr/Ec)
81 mg PO DAILY
Discharge Orders:
Discharge Patient (As Directed); Ordered 08/17/24
Ordered By: Vignesh Gaston
Care Plan Goals
Care Plan Goals:
Problem: Readiness for enhanced knowledge related to diagnosis and treatment plan
Goal: Understand your diagnosis and treatment plan needs, including medications if applicable.
Instructions: Know your diagnosis, underlying causes and treatment plan options, including medications if applicable. Consult with your health care team to learn about your diagnosis and treatment plan, including medications if applicable.
Discharge Date and Time
Discharge Date/Time: 08/17/24 12:23
Print Language: [id number]
[2024-08-17] MEDS: RENVELA PO (11:54)
--- NOTE | 2024-08-17 12:17 | W.PN.NEPH.PH ---
Today's Communication / Plan
-
dc
Assessment/Plan
-
59-year-old male with past medical history significant for hypertension, hyperlipidemia, chronic congestive heart failure, anemia and ESRD on HD who presented to [facility] for scheduled out-patient cardiac catheterization. Patient was in catheterization
with elevated blood pressure and cough when physician decided patient needed to spend the night for potential decompensated heart failure.
Renal consult for end-stage renal disease been on dialysis for 2 years has failed AV shunts bilateral upper extremity currently has a tunneled right femoral catheter.
Receives dialysis at [facility] Dr. Meade
Impression.
End-stage renal disease Friday and Friday at [facility].
CHF.
Morbid obesity.
Right tunneled femoral dialysis catheter.
Failed AV shunts bilateral upper extremity.
Plan.
refused HD today
says that his daughter will not bend her schedule. She will come get him now or she won't come at all today
he will call HD unit to see if he can be done tomorrow and then resume regular schedule
-
-
Date of Service: August 17, 2024
CC / HPI / ROS
-
Chief Complaint:
CHF
History of Present Illness:
ESRD and Friday
tolerated HD yesterday
stayed overnight after LH with BM
refusing HD today
Review of Systems:
no LH
No chest pain or shortness of breath
Labs
-
Labs:
WBC 15.3 10^3/uL (4.8-10.8) H 08/17/24 02:20
RBC 4.26 10^6/uL (4.70-6.10) L 08/17/24 02:20
Hgb 12.6 g/dL (13.0-18.0) L 08/17/24 02:20
Hct 38.5 % (39.0-52.0) L 08/17/24 02:20
Plt Count 313 10^3/uL (130-400) 08/17/24 02:20
Sodium 135 mmol/L (135-145) 08/17/24 02:20
Potassium 5.2 mmol/L (3.5-5.1) H 08/17/24 02:20
Chloride 100 mmol/L (98-107) 08/17/24 02:20
Carbon Dioxide 21 mmol/L (22-30) L 08/17/24 02:20
BUN 49 mg/dl (9-20) H 08/17/24 02:20
Creatinine 7.4 mg/dL (0.7-1.3) H* 08/17/24 02:20
eGFR 7.85 08/17/24 02:20
Glucose 109 mg/dl (70-99) H 08/17/24 02:20
Calcium 9.1 mg/dl (8.4-10.2) 08/17/24 02:20
Physical Exam
-
Vital Signs:
Vital Signs
Temp Pulse Resp BP Pulse Ox
97.5 F 93 16 131/96 96
08/17/24 10:31 08/17/24 10:32 08/17/24 10:31 08/17/24 10:32 08/17/24 10:31
Cardiovascular:: Regular rate and rhythm
Respiratory:: Bilateral: CTA
Lung Excursion:: Normal
Abdomen:: Nontender and Soft
Bowel Sounds:: Normal
Extremity Edema:: +1: Bilateral:
--- NOTE | 2024-08-17 12:17 | PTCARENOTE ---
Patient refused dialysis prior to discharge. Hospitalist and vocational nurse lvn aware. Patient states 'I already told my daughter to pick me up. She wont wait for me or come back to pick me up.' Explained the importance of his HD. Mop Machine Operator at
bedside encouraging patient to have HD this .
--- NOTE | 2024-08-17 12:33 | W.PN.CARDCBS ---
Addendum entered and electronically signed by Carlos Francois MD 08/17/24 12:46:
I saw and examined the patient.
The Overseamer's note was reviewed and I agree with the note.
Comment:
GEN: No distress, awake, Ox3
HEENT: supple, anicteric, mmm
LUNGS: CTA, no wheezes/rales
CV: Reg, S1/S2, /6 syst LSB, no gallop
ABD: soft, BS+, NT/ND
EXT: No edema
NEURO: Gross non-focal
SKIN: No rash
Plan:
Stable for discharge today. Cardiac cath results reviewed with patient. Nonobstructive CAD. LVEF is 30 to 35%.
Continue Coreg and Entresto. No SLG 2 inhibitor with dialysis for now.
Will continue Bumex 1 mg p.o. twice daily as outpatient.
Follow-up with hemodialysis and Dr. Durham
Original Note:
Today's Communication / Plan
-
f/u with Dr. Sandoval at [facility]
Impression / Plan
-
PCP: Dr. Ericka Campos
Card: Dr. Durham at [facility]
Impression:
Admitted for acute HFpEF following elective outpatient cardiac cath 08/13/2024
Acute on chronic HFpEF
Reported history of CM, unknown EF now reportedly improved and EF probably normal by echo at [facility] 05/07/2023
HTN
Hyperlipidemia
ESRD on HD
Scheduled for outpatient AV fistula creation 08/2024
Nonobstructive CAD by cardiac catheterization 08/13/2024
Echo 05/07/2023: [facility] study, very technically limited study, probably normal LV systolic function, poor visualization of valvular structures but no obvious significant valvular heart disease
Echo 08/16/2024: EF 30 to 35%, LV globally hypokinetic, severe concentric LVH, no MR, no /AI, no TR
Plan:
-Patient seen prior to d/c. Patient was planned for d/c 08/16/24, but stayed overnight due to abdominal pain and near syncope when moving his bowels.
-Patient follows with Dr. Durham at [facility] and was referred to Dr. Downey for [facility] as a preoperative evaluation to planned AV fistula placement next week. During C 08/13/2024 the patient had no obstructive disease, but the LVEDP was 27 and patient was
admitted for acute HF.
-Weight down 2 lbs overnight and about 9 lbs total this admission. Patient being weighed with bed scale due to body habitus and overall weight is up 3 lbs despite Bumex 2 mg IV x 1 08/14/2024 PM
-Patient was taking Bumex 2 mg PO HS prior to admission and there was an attempt to increase that dose during this admission, but this did not help much with increasing urine output or dropping his weight. Most of his weight loss is probably
attributed to UF during HD. He is going to resume his prior to admission dose of Bumex.
-EF 30 to 35% by echo 09-08, this is down compared to echo from [facility] on 05/07/2023 that was a TDS but overall felt to be normal LV systolic function
-Outpatient dose of Coreg 25 mg BID has been continued
-Outpatient dose of Entresto 24/26 mg BID has been continued
-Patient is not chronically on spironolactone due to ESRD on HD
-Would not start SGLT2 inhibitor due to ESRD on HD
-LDL 147 and outpatient dose of atorvastatin was increased to 80 mg at bedtime
-ECW task to arrange for CHF follow-up sent to Dr. Durham's office
Progress Note - Drywall Finisher
Subjective
Date of Service: August 17, 2024
Less SOB
Objective
Labs:
08/17/24 02:20
08/17/24 02:20
Labs
Hgb 12.6 g/dL (13.0-18.0) L 08/17/24 02:20
Hct 38.5 % (39.0-52.0) L 08/17/24 02:20
Plt Count 313 10^3/uL (130-400) 08/17/24 02:20
Sodium 135 mmol/L (135-145) 08/17/24 02:20
Potassium 5.2 mmol/L (3.5-5.1) H 08/17/24 02:20
BUN 49 mg/dl (9-20) H 08/17/24 02:20
Creatinine 7.4 mg/dL (0.7-1.3) H* 08/17/24 02:20
Glucose 109 mg/dl (70-99) H 08/17/24 02:20
Vital Signs and I&O:
Vital Signs
Temp Pulse Resp BP Pulse Ox
97.5 F 93 16 131/96 96
08/17/24 10:31 08/17/24 10:32 08/17/24 10:31 08/17/24 10:32 08/17/24 10:31
Vital Signs
Temp Pulse Resp BP Pulse Ox
97.5 F 93 16 131/96 96
08/17/24 10:31 08/17/24 10:32 08/17/24 10:31 08/17/24 10:32 08/17/24 10:31
Intake & Output
08/15/24 08/16/24 08/17/24 08/18/24
06:59 06:59 06:59 06:59
Intake Total 240 / 240 870 / 870 480 / 480 240 / 240
Output Total 550 / 550 1000 / 1000 400 / 400 300 / 300
Balance -310 / -310 -130 / -130 80 / 80 -60 / -60
Physical Exam
Physical Exam
GEN: NAD. AAOx3
HEENT: EOMI
LUNGS: RA.
CV: SR on tele.
ABD: large pannus
EXT: +1 B/L LE edema
NEURO: Gross non-focal
SKIN: No rash
== END 2024-08-17 12:23 | disposition home or self-care (01) | DRG 286 ==
LOC: IVU 09:07
PROVIDERS: Internal Medicine; Internal Medicine Interventional Cardiology; Nurse Practitioner Family; ADMITTING PHYSICIAN Hospitalist; CONSULT PHYSICIAN Internal Medicine Nephrology
PROC: 4A023N7 Measurement of Cardiac Sampling and Pressure, Left Heart, Percutaneous Approach (ICD-10-PCS; 2024-08-13)
PROC: B2111ZZ Fluoroscopy of Multiple Coronary Arteries using Low Osmolar Contrast (ICD-10-PCS; 2024-08-13)
PROC: 5A1D70Z Performance of Urinary Filtration, Intermittent, Less than 6 Hours Per Day (ICD-10-PCS; 2024-08-14)
DX: I13.2 Hypertensive heart and chronic kidney disease with heart failure and with stage 5 chronic kidney disease, or end stage renal disease (principal); I50.33 Acute on chronic diastolic (congestive) heart failure; N18.6 End stage renal disease; Z68.43 Body mass index [BMI] 50.0-59.9, adult; I42.8 Other cardiomyopathies; E78.5 Hyperlipidemia, unspecified; E87.5 Hyperkalemia; E66.01 Morbid (severe) obesity due to excess calories; D63.1 Anemia in chronic kidney disease; I25.10 Atherosclerotic heart disease of native coronary artery without angina pectoris; I16.0 Hypertensive urgency; K59.00 Constipation, unspecified; R55 Syncope and collapse; Z98.84 Bariatric surgery status; Z91.148 Patient's other noncompliance with medication regimen for other reason; Z87.891 Personal history of nicotine dependence; Z88.8 Allergy status to other drugs, medicaments and biological substances; Z79.82 Long term (current) use of aspirin; Z99.2 Dependence on renal dialysis; Z91.199 Patient's noncompliance with other medical treatment and regimen due to unspecified reason
CPT/HCPCS: 71046; 74018; 80048; 80061; 85025; 85027; 87070; 93005; 93306; 93458; 99152; 99153; C1894; G0257; P9047; Q9950; Q9967